=== PATIENT | female | born 1960 | race Caucasian/White ===

== ENCOUNTER 2023-01-17 10:23 | Outpatient (RCR) | payer OTHER, SELFPAY ==
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
--- NOTE | 2023-02-15 13:09 | PTOPPROG ---
Assessment and note entered by JT File, PT Evaluation Information Assessment Status Progress Diagnosis R knee medial meniscus tear, R knee PF OA, R ITB syndrome Onset 12/30/22 Subjective Information patient reports she feels Alright this date. she reports she continues to have pain in the R knee with walking. she reports she has been doing her exercises at home. Assessment PT Clinical Summary mrs. leblanc presents to skilled PT services for her 10th skilled PT visit. as of today, she displays continued pain in the R knee, but increased rom and HEP performance. she has met goals for knee flexion arom and HEP independence. she would benefit from continued skilled PT to continue to work towards achievement of remaining goals for skilled PT. Plan of Care Interventions Electrical Stimulation,Gait Training,Hot Pack/Cold Pack,Intermittent Compression,Manual Therapy, Neuro Re-education,Patient/Caregiver Educati, Therapeutic Activities,Therapeutic Exercise PT Services Indicated Yes Treatment Frequency and continue skilled PT per initial evaluation (2 more Duration visits) These treatments will address the objective and functional deficits as defined above. The patient will be advanced safely and appropriately in order for the patient to progress towards his/her prior level of function. Additional exercises will be introduced and as well as a comprehensive home exercise program upon discharge, if needed, ?to ensure carryover of functional gains achieved in the clinic. This treatment plan has been reviewed and agreement upon by the patient.
--- NOTE | 2023-02-23 10:30 | PTOPDC ---
Assessment and note entered by JT File, PT Evaluation Information Assessment Status Discharge Diagnosis R knee medial meniscus tear, R knee PF OA, R ITB syndrome Onset 12/30/22 Subjective Information patient reports she has returned to her MD for follow up. she reports the MD is happy with her mobility and strength. she reports she was instructed she can continue her exercises at home. Reported Pain Level Pain Score 2: Self Report Assessment PT Clinical Summary mrs. leblanc presents to skilled PT for her 12th skilled therapy visit. per her MD visit this week she can DC skilled PT, and continue with HEP exercises at home. she displays improved rom, strength, and gait mechanics with little pain/ discomfort in the R knee. she has met roughly 50% of goals for skilled PT. she would benefit from continued HEP exercises, but will DC skilled PT and continue HEP independent at home. Plan of Care PT Services Indicated Yes
== END 2023-02-23 11:21 | disposition home or self-care (01) ==
LOC: CHSPT 10:23
PROVIDERS: PCP Physician Assistant; Visit Provider Physician Assistant
DX: S83.242D Other tear of medial meniscus, current injury, left knee, subsequent encounter (principal); M17.11 Unilateral primary osteoarthritis, right knee; M76.31 Iliotibial band syndrome, right leg
CPT/HCPCS: 97014; 97110; 97140; 97161; 97530; G0283

== ENCOUNTER 2023-04-27 13:11 | Outpatient (RCR) | payer OTHER, SELFPAY ==
--- NOTE | 2023-04-27 14:01 | OPREHPOC ---
Outpatient Therapy Plan of Care This is a Multidisciplinary Plan of Care that may contain components documented by all disciplines (PT, OT, and ST.) PT Problem 1 PT Problem #1 Knowledge Deficit PT Goal 1 Goal Patient to demonstrate independence with HEP Target Visit 6 PT Problem 2 PT Problem #2 Pain PT Goal 1 Goal 1. Patient to report highest pain at 2/10 Target Visit 12 PT Problem 3 PT Problem #3 Impaired Range of Motion PT Goal 1 Goal Patient to demonstrate 0-120 degrees of B knee AROM to return to stair navigation at PLOF Target Visit 12 PT Problem 4 PT Problem #4 Impaired Strength PT Goal 1 Goal Patient to demonstrate 5/5 strength of B knees to return to house hold chores at PLOF Target Visit 12 PT Problem 5 PT Problem #5 Impaired Functional Mobil PT Goal 1 Goal 1. Patient to report ability to get into and out of car with no increase in pain 2. Patient to report ability to ambulate >30 min with no increase in pain 3. Patient to report ability to complete house hold chores at PLOF Target Visit 12
--- NOTE | 2023-04-27 14:01 | PTOPEVAL1 ---
Assessment and note entered by Laine Lopez DPT Evaluation Information Assessment Status Evaluation Diagnosis B Knee pain Onset 04/24/23 Subjective Information Patient reports chronic knee pain B. She reports she underwent B knee arthroscopy on 04/24/23. Since surgery she reports she has had pain in both knees. She reports she has not used a walker. She reports she is using ice and is getting up every hour to try to walk. Patient reports most difficulty with walking, getting into and out of the car, stair navigation and completing house hold tasks. She returns to MD on 05/08/23. Reported Pain Level Pain Score 3,1: Self Report Assessment PT Clinical Summary Patient is a 62 year old female who presents to PT with B knee pain following B arthroscopy on . Patient demonstrates decreased B knee AROM, decreased B LE strength and impaired gait limiting her ability to get in/out of vehicles, navgiate stairs, ambulate and complete house hold tasks. Patient would benefit from skilled PT to address impairments and return to OF. Plan of Care Interventions Electrical Stimulation,Gait Training,Hot Pack/Cold Pack,Manual Therapy,Neuro Re-education,Patient/ Caregiver Educati,Therapeutic Activities, Therapeutic Exercise PT Services Indicated Yes Treatment Frequency and 2x weekly for 12 visits Duration These treatments will address the objective and functional deficits as defined above. The patient will be advanced safely and appropriately in order for the patient to progress towards his/her prior level of function. Additional exercises will be introduced and as well as a comprehensive home exercise program upon discharge, if needed, ?to ensure carryover of functional gains achieved in the clinic. This treatment plan has been reviewed and agreement upon by the patient.
--- NOTE | 2023-05-29 16:50 | OPREHPOC ---
Outpatient Therapy Plan of Care This is a Multidisciplinary Plan of Care that may contain components documented by all disciplines (PT, OT, and ST.) PT Problem 1 PT Problem #1 Knowledge Deficit PT Goal 1 Goal Patient to demonstrate independence with HEP Target Visit 6 Progress Met PT Problem 2 PT Problem #2 Pain PT Goal 1 Goal 1. Patient to report highest pain at 2/10 Target Visit 12 Progress Met PT Problem 3 PT Problem #3 Impaired Range of Motion PT Goal 1 Goal Patient to demonstrate 0-120 degrees of B knee AROM to return to stair navigation at PLOF Target Visit 12 Progress Met PT Problem 4 PT Problem #4 Impaired Strength PT Goal 1 Goal Patient to demonstrate 5/5 strength of B knees to return to house hold chores at PLOF Target Visit 12 Comment progressing, continue PT Problem 5 PT Problem #5 Impaired Functional Mobil PT Goal 1 Goal 1. Patient to report ability to get into and out of car with no increase in pain- MET 2. Patient to report ability to ambulate >30 min with no increase in pain- MET 3. Patient to report ability to complete house hold chores at PLOF Target Visit 12 Progress Partially Met
--- NOTE | 2023-05-29 16:50 | PTOPPROGNS ---
Assessment and note entered by Laine Lopez DPT Evaluation Information Assessment Status Progress Diagnosis B Knee pain Onset 04/24/23 Subjective Information Patient reports that walking has improved. She reports the last 3 nights she has been able to sleep without B knee pain. She continues to have difficulty with stairs due to L knee discomfort but reports that is improving. Assessment PT Clinical Summary Mrs. Pruitt has been seen for 10 visits of skilled PT with great progress towards goals. Patient has met goals for ROM and pain but continues to lack B knee strength L>R. Patient has improved ambulation ability but has continued difficulty with stairs. Patient will benefit from continued skilled PT to address remaining impairments and return to PLOF. Plan of Care Interventions Electrical Stimulation,Gait Training,Hot Pack/Cold Pack,Manual Therapy,Neuro Re-education,Patient/ Caregiver Educati,Therapeutic Activities, Therapeutic Exercise PT Services Indicated Yes Treatment Frequency and 2x weekly for remaining 2 visits Duration These treatments will address the objective and functional deficits as defined above. The patient will be advanced safely and appropriately in order for the patient to progress towards his/her prior level of function. Additional exercises will be introduced and as well as a comprehensive home exercise program upon discharge, if needed, ?to ensure carryover of functional gains achieved in the clinic. This treatment plan has been reviewed and agreement upon by the patient.
--- NOTE | 2023-06-07 11:16 | OPREHPOC ---
Outpatient Therapy Plan of Care This is a Multidisciplinary Plan of Care that may contain components documented by all disciplines (PT, OT, and ST.) PT Problem 1 PT Problem #1 Knowledge Deficit PT Goal 1 Goal Patient to demonstrate independence with HEP Target Visit 6 Progress Met PT Problem 2 PT Problem #2 Pain PT Goal 1 Goal 1. Patient to report highest pain at 2/10 Target Visit 12 Progress Met PT Problem 3 PT Problem #3 Impaired Range of Motion PT Goal 1 Goal Patient to demonstrate 0-120 degrees of B knee AROM to return to stair navigation at PLOF Target Visit 12 Progress Met PT Problem 4 PT Problem #4 Impaired Strength PT Goal 1 Goal Patient to demonstrate 5/5 strength of B knees to return to house hold chores at PLOF Target Visit 12 Progress Met Comment progressing, continue PT Problem 5 PT Problem #5 Impaired Functional Mobil PT Goal 1 Goal 1. Patient to report ability to get into and out of car with no increase in pain- MET 2. Patient to report ability to ambulate >30 min with no increase in pain- MET 3. Patient to report ability to complete house hold chores at PLOF- MET Target Visit 12 Progress Met
--- NOTE | 2023-06-07 11:16 | PTOPDC ---
Assessment and note entered by Laine Lopez DPT Evaluation Information Assessment Status Discharge Diagnosis B Knee pain Onset 04/24/23 Subjective Information Patient reports she continues to do well. She has returned to all ADLs at PLOF. She reports independence with HEP Reported Pain Level Pain Score 0,0: Self Report Assessment PT Clinical Summary Patient was seen for 12 visits of skilled PT. Patient met all goals set during POC. She has been able to return to all ADLs at PLOF. Patient is independent with HEP and is appropriate to DC at this time. Plan of Care PT Services Indicated No
== END 2023-06-07 15:45 | disposition home or self-care (01) ==
LOC: CHSPT 13:11
PROVIDERS: Visit Provider Orthopaedic Surgery
DX: Z48.89 Encounter for other specified surgical aftercare (principal); Z98.890 Other specified postprocedural states
CPT/HCPCS: 97016; 97110; 97150; 97161; 97530

== ENCOUNTER → 2023-05-10 10:19 | Outpatient (CLI) | payer SELFPAY ==
--- NOTE | ~2023-05-10 | MM_ITS ---
EXAMINATION: MM screening [facility] BI w [facility] HISTORY: Screening mammogram TECHNIQUE: Craniocaudal and mediolateral oblique 3-D tomosynthesis images were obtained and synthetic 2-D images were generated. CAD analysis was submitted and interpreted. COMPARISON: 10/2015 bilateral screening mammogram BREAST PARENCHYMAL COMPOSITION: There are scattered areas of fibroglandular density. FINDINGS: Stable mild fibroglandular asymmetry. Scattered bilateral occasional benign calcifications. There is no evidence of suspicious mass, calcification, or architectural distortion to suggest malig denny in either breast. There has been no suspicious interval change. IMPRESSION: 1. No mammographic evidence of malignancy. 2. Recommend routine screening mammography in one year. BI-RADS Category 2: Benign finding(s). Reviewed, dictated and finalized at location A.
== END ==
PROVIDERS: PCP Family Medicine; Visit Provider Family Medicine
DX: Z12.31 Encounter for screening mammogram for malignant neoplasm of breast (principal)
CPT/HCPCS: 77063; 77067

== ENCOUNTER 2025-08-21 11:11 | Outpatient (CLI) | payer MEDICARE, SELFPAY ==
--- NOTE | ~2025-08-21 | DEXA_ITS ---
Bone Density Report Name: DOUGLAS LEI Age: 65 Sex: Female Ethnicity: White Date of : 1960 Indication: postmenopausal; screening for osteoporosis; hysterectomy; Referring Provider: MADI*Maurice, JOHN Study: Bone densitometry was performed. Exam Date: August 21, 2025 Accession number: [id number] Bone Density: Region BMD T-score Z-score Classification AP Spine(L1, L2, L3) 0.917 -0.9 0.9 Normal Femoral Neck (Left) 0.861 0.1 1.7 Normal Total Hip (Left) 0.986 0.4 1.6 Normal Femoral Neck (Right) 0.820 -0.3 1.3 Normal Total Hip (Right) 0.976 0.3 1.6 Normal Total Hip Mean 0.981 0.4 1.6 Normal World Health Organization criteria for BMD impression classify patients as: Normal (T-score at or above -1.0), Osteopenia (T-score between -1.0 and -2.5), or Osteoporosis (T-score at or below -2.5). 10-year Fracture Risk: FRAX not reported because: All T-scores for Spine Total, Hip Total, Femoral Neck at or above -1.0 Previous Exams: -- Region Exam Age BMD T-score BMD Change BMD Change Date g/cm2 vs Baseline vs Previous -- AP Spine (L1-L3) 08/21/2025 65 0.917 -0.9 -10.2%# -8.6%# 10/06/2014 54 1.003 -0.1 -1.8% -1.8% 06/28/2011 50 1.021 0.0 Total Hip(Left) 08/21/2025 65 0.986 0.4 -7.2%* -1.4% 10/06/2014 54 1.000 0.5 -5.9%* -5.9%* 06/28/2011 50 1.062 1.0 Total Hip(Right) 08/21/2025 65 0.976 0.3 -8.3%* -5.2%* 10/06/2014 54 1.030 0.7 -3.3%* -3.3%* 06/28/2011 50 1.065 1.0 -- *Denotes significance at 95% confidence level, LSC for AP Spine = 0.022 g/cm2, LSC for Total Hip = 0.027 g/cm2 Rate of change results reflect vertebral levels common to all scans # Denotes dissimilar scan types or analysis methods Clinical Information Provided by Patient: Has used the following medications: Vitamin D, Calcium Has the following medical conditions: Hysterectomy Patient maximum height was 63 Menopause Age: 46 No regular weight bearing exercise Onset of menses at age 14 Number of children 3 Impression: The patient has normal bone mass. The BMD for the Total Hip(Right) decreased, changing by -5.2% since the last DXA exam. Discussion: BONE DENSITY IS ABOVE THE MINIMUM DESIRABLE LEVEL AT ALL SKELETAL SITES TESTED. This patient?s bone mineral density is above the minimum desirable level (T-score -1.0 or better) at all sites measured. The patient should follow a healthful lifestyle (good nutrition with adequate calcium and vitamin D, and appropriate weight-bearing exercise). Follow-Up: Consider repeating this study in 3 to 4 years to reassess this patient's status, or sooner if there is some new clinical indication. Reported by: SUNIL on 08/21/2025 11:36:00 AM. Reviewed, dictated and finalized at location A.
--- NOTE | ~2025-08-21 | MM_ITS ---
EXAMINATION: MM screening [facility] BI w [facility] HISTORY: Screening TECHNIQUE: Craniocaudal and mediolateral oblique 3-D tomosynthesis images were obtained and synthetic 2-D images were generated. CAD analysis was submitted and interpreted. COMPARISON: Comparison to multiple prior studies sequentially, with oldest reviewed study dated 10/11/2015. BREAST PARENCHYMAL COMPOSITION: Not dense: There are scattered areas of fibroglandular density. FINDINGS: There is no evidence of suspicious mass, calcification, or architectural distortion to suggest malignancy in either breast. There has been no suspicious interval change. IMPRESSION: 1. No mammographic evidence of malignancy. 2. Recommend routine screening mammography in one year. BI-RADS Category 1: Negative Reviewed, dictated and finalized at location B. [employer]
== END 2025-08-21 11:12 | disposition home or self-care (01) ==
PROVIDERS: PCP Family Medicine; Visit Provider Registered Nurse
DX: Z12.31 Encounter for screening mammogram for malignant neoplasm of breast (principal); Z78.0 Asymptomatic menopausal state
CPT/HCPCS: 77063; 77067; 77080